=== PATIENT | male | born 1950 | race Hispanic/Latino ===

== ENCOUNTER → 2021-07-09 | Outpatient (CLI) | payer MEDICARE ==
[~2021-07-09] MED LIST: METFORMIN HCL500 M3; Z AMLODIPINE ATO PO; Z.0.FINASTERIDE5 MG PO; Z.0.FOLIC ACID1 MG PO; Z.0.ONGLYZA5 MG PO; Z.0.TRILIPIX135 MG PO; Z.1.BENICAR HCT 401 PO
== END ==
LOC: US 08:15
PROVIDERS: ATTEND Family Medicine
DX: R10.11 Right upper quadrant pain (principal)
CPT/HCPCS: 76705

== ENCOUNTER → 2021-07-19 | Outpatient (CLI) | payer OTHER | LOC: NM 07:44 | PROVIDERS: ATTEND Family Medicine | DX: R10.0 Acute abdomen (principal) | CPT/HCPCS: 78227; A9537 ==